=== PATIENT | female | born 1945 | race Caucasian/White ===

== ENCOUNTER 2018-02-24 13:25 | Emergency (ER) | payer OTHER ==
--- NOTE | 2018-02-24 14:34 | RAD REPORT ---
EXAM DESCRIPTION: RAD - Chest Single View - 02/24/2018 2:21 pm CLINICAL HISTORY: Congestion;Cough Chest pain. COMPARISON: Chest Pa And Lat (2 Views) dated 04/26/2016; Chest Pa And Lat (2 Views) dated 12/29/2015; CHEST PA AND LAT 2 VIEW dated 05/20/2012; Thorax Wo Con dated 06/25/2016 FINDINGS: Portable technique limits examination quality. Interstitial lung markings are diffusely prominent. Significant fullness in both hilar regions appear s unchanged most compatible with pulmonary arterial hypertension. Heart is mildly enlarged in size. N o displaced fractures. IMPRESSION: Pulmonary arterial hypertension. No acute bacterial pneumonia seen. Mild interstitial pulmonary edema versus interstitial pneumonia present.
[2018-02-24] MEDS ORDERED: LEVALBUTEROL 0.63 MG/3 ML NEB ONE (14:38)
--- NOTE | 2018-02-24 15:56 | EDPHYS ---
Physician Documentation [facility] Name: Judith Ernst Age: 72 yrs Sex: Female : 1945 Arrival Date: 02/24/2018 Time: 13:28 Bed 30 Private MD: Owen Trevizo E ED Physician Woo Burnett HPI: 02/24 15:01 This 72 yrs old Female presents to ER via Ambulatory with complaints of kdr Fever, Cough. 15:01 The patient reports fever, not measured (subjective). Onset: The symptoms/episode kdr began/occurred last night. Modifying factors: there are no obvious modifying factors. Associated signs and symptoms: Pertinent positives: chills, cough, that is dry. Severity of symptoms: At their worst the symptoms were mild moderate just prior to arrival, in the emergency department the symptoms are unchanged. The patient has not experienced similar symptoms in the past. The patient has not recently seen a physician. Historical: - Allergies: 13:38 No Known Allergies; hj - Home Meds: 13:38 alprazolam Oral [Active]; GERD meds [Active]; hj - PMHx: 13:38 GERD; Anxiety; hj - PSHx: 13:38 None; hj - Immunization history:: Adult Immunizations unknown. - Social history:: Smoking status: Patient/guardian denies using tobacco, Patient/guardian denies using alcohol. - Ebola Screening: : Patient negative for fever greater than or equal to 101.5 degrees Fahrenheit, and additional compatible Ebola Virus Disease symptoms Patient denies exposure to infectious person Patient denies travel to an Ebola-affected area in the 21 days before illness onset. ROS: 15:01 Constitutional: Negative for weight loss - did have subjective fever, chills and cough kdr Eyes: Negative for injury, pain, redness, and discharge, ENT: Negative for injury, pain, and discharge, Neck: Negative for injury, pain, and swelling, Cardiovascular: Negative for chest pain, palpitations, and edema, Abdomen/GI: Negative for abdominal pain, nausea, vomiting, diarrhea, and constipation, Back: Negative for injury and pain, : Negative for injury, bleeding, discharge, and swelling, MS/Extremity: Negative for injury and deformity, Skin: Negative for injury, rash, and discoloration, Neuro: Negative for headache, weakness, numbness, tingling, and seizure activity. Psych: Negative for depression, anxiety, suicide ideation, homicidal ideation, and hallucinations, Allergy/Immunology: Negative for hives, rash, and allergies, Endocrine: Negative for neck swelling, polydipsia, polyuria, polyphagia, and marked weight changes, Hematologic/Lymphatic: Negative for swollen nodes, abnormal bleeding, and unusual bruising. 15:01 Respiratory: Positive for cough, with clear sputum, dyspnea on exertion, shortness of breath, on exertion. wheezing, inspiratory. Exam: 15:01 Constitutional: This is a well developed, well nourished patient who is awake, alert, kdr and in no acute distress. Head/Face: Normocephalic, atraumatic. Eyes: Pupils equal round and reactive to light, extra-ocular motions intact. Lids and lashes normal. Conjunctiva and sclera are non-icteric and not injected. Cornea within normal limits. Periorbital areas with no swelling, redness, or edema. Neck: Trachea midline, no thyromegaly or masses palpated, and no cervical lymphadenopathy. Supple, full range of motion without nuchal rigidity, or vertebral point tenderness. No Meningismus. Chest/axilla: Normal chest wall appearance and motion. Nontender with no deformity. No lesions are appreciated. Cardiovascular: Regular rate and rhythm with a normal S1 and S2. No gallops, murmurs, or rubs. Normal PMI, no JVD. No pulse deficits. Abdomen/GI: Soft, non-tender, with normal bowel sounds. No distension or tympany. No guarding or rebound. No evidence of tenderness throughout. Back: No spinal tenderness. No costovertebral tenderness. Full range of motion. Skin: Warm, dry with normal turgor. Normal color with no rashes, no lesions, and no evidence of cellulitis. MS/ Extremity: Pulses equal, no cyanosis. Neurovascular intact. Full, normal range of motion. Neuro: Awake and alert, GCS 15, oriented to person, place, time, and situation. Cranial nerves II-XII grossly intact. Motor strength 5/5 in all extremities. Sensory grossly intact. Cerebellar exam normal. Normal gait. Psych: Awake, alert, with orientation to person, place and time. Behavior, mood, and affect are within normal limits. 15:01 Respiratory: the patient does not display signs of respiratory distress, Respirations: normal, Breath sounds: rales, crackles at bilateral bases with slight wheezing in right posterior base. Vital Signs: 13:39 BP 150 / 66; Pulse 92; Resp 18; Temp 99.5(O); Pulse Ox 96% on R/A; Weight 81.65 kg; hj Height 5 ft. 0 in. (152.40 cm); Pain 0/10; 15:37 BP 133 / 61; Pulse 95; Resp 18; Pulse Ox 97% ; tl3 16:32 BP 128 / 59; Pulse 90; Resp 18; Pulse Ox 95% on R/A; tl3 13:39 Body Mass Index 35.15 (81.65 kg, 152.40 cm) hj MDM: 15:56 Patient medically screened. kdr 16:21 Data reviewed: vital signs, nurses notes, lab test result(s), radiologic studies. kdr Counseling: I had a detailed discussion with the patient and/or guardian regarding: the historical points, exam findings, and any diagnostic results supporting the discharge/admit diagnosis, lab results, radiology results, the need for outpatient follow up. 02/24 14:05 Order name: Flu kdr 02/24 14:05 Order name: CXR XRAY; Complete Time: 15:00 kdr Administered Medications: 14:20 Drug: Xopenex (3) 1.25 mg Route: Inhalation; tl3 15:38 Follow up: Response: No adverse reaction; Marked relief of symptoms tl3 Disposition: 02/24/18 15:56 Discharged to Home. Impression: Acute interstitial pneumonitis. - Condition is Stable. - Discharge Instructions: Community-Acquired Pneumonia, Adult, [id number]. - Prescriptions for Zithromax Z- Barry 250 mg Oral Tablet - take 1 tablet by ORAL route as directed for 5 days Day 1 - take two (2) tablets one time. Day 2, 3, 4 , 5 take one (1) tablet once daily.; 6 tablet. Tessalon Perles 100 mg Oral Capsule - take 1 capsule by ORAL route every 8 hours As needed; 15 capsule. Albuterol Sulfate 90 mcg/actuation - inhale 1-2 puff by INHALATION route every 4-6 hours; 1 Inhaler. - Medication Reconciliation Form, Thank You Letter, Antibiotic Education form. - Follow up: Owen Trevizo MD; When: 2 - 3 days; Reason: If symptoms return, Further diagnostic work-up, Recheck today's complaints, Continuance of care, Re-evaluation by your physician. - Problem is new. - Symptoms are unchanged. Signatures: Dispatcher [employer] Woo Eason MD MD [facility] Gerson Woodson RN RN Nelia Fernandez RN RN tl3 Corrections: (The following items were deleted from the chart) 16:33 15:56 02/24/2018 15:56 Discharged to Home. Impression: Acute interstitial pneumonitis. tl3 Condition is Stable. Forms are Medication Reconciliation Form, Thank You Letter, Antibiotic Education, Prescription Opioid Use. Follow up: Owen Trevizo; When: 2 - 3 days; Reason: If symptoms return, Further diagnostic work-up, Recheck today's complaints, Continuance of care, Re-evaluation by your physician. Problem is new. Symptoms are unchanged. kdr
--- NOTE | 2018-02-24 15:56 | ER ---
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 Transition of care: patient was not received from another setting of care. Onset of symptoms was February 24, 2018. Risk Assessment: Do you want to hurt yourself or someone else? Patient reports no desire to harm self or others. Initial Sepsis Screen: Does the patient meet any 2 criteria? No. Patient's initial sepsis screen is negative. Does the patient have a suspected source of infection? No. Patient's initial sepsis screen is negative. Care prior to arrival: None. 13:35 Method Of Arrival: Ambulatory 13:35 Acuity: LAILA 4 hj Triage Assessment: 13:39 General: Appears in no apparent distress. uncomfortable, Behavior is calm, cooperative, hj appropriate for age. Pain: Denies pain. Historical: - Allergies: 13:38 No Known Allergies; hj - Home Meds: 13:38 alprazolam Oral [Active]; GERD meds [Active]; hj - PMHx: 13:38 GERD; Anxiety; hj - PSHx: 13:38 None; hj - Immunization history:: Adult Immunizations unknown. - Social history:: Smoking status: Patient/guardian denies using tobacco, Patient/guardian denies using alcohol. - Ebola Screening: : Patient negative for fever greater than or equal to 101.5 degrees Fahrenheit, and additional compatible Ebola Virus Disease symptoms Patient denies exposure to infectious person Patient denies travel to an Ebola-affected area in the 21 days before illness onset. Screenin:39 Abuse screen: Denies threats or abuse. Denies injuries from another. Nutritional hj screening: No deficits noted. Tuberculosis screening: No symptoms or risk factors identified. Fall Risk None identified. Assessment: 14:11 General: Appears in no apparent distress. well groomed, well developed, well nourished, tl3 Behavior is calm, cooperative, appropriate for age. Pain: Denies pain. Neuro: Level of Consciousness is awake, alert, obeys commands. Cardiovascular: Patient's skin is warm and dry. Respiratory: Airway is patent Respiratory effort is even, unlabored, Respiratory pattern is regular, symmetrical. Respiratory: Reports cough that is productive. GI: No deficits noted. No signs and/or symptoms were reported involving the gastrointestinal system. : No deficits noted. No signs and/or symptoms were reported regarding the genitourinary system. EENT: No deficits noted. No signs and/or symptoms were reported regarding the EENT system. Derm: No deficits noted. No signs and/or symptoms reported regarding the dermatologic system. 15:37 Reassessment: Patient and/or family updated on plan of care and expected duration. Pain tl3 level reassessed. Patient is alert, oriented x 3, equal unlabored respirations, skin warm/dry/pink. Patient states feeling better. 16:32 Reassessment: Patient appears in no apparent distress at this time. No changes from tl3 previously documented assessment. Patient and/or family updated on plan of care and expected duration. Pain level reassessed. Patient is alert, oriented x 3, equal unlabored respirations, skin warm/dry/pink. pt feels much better. Vital Signs: 13:39 BP 150 / 66; Pulse 92; Resp 18; Temp 99.5(O); Pulse Ox 96% on R/A; Weight 81.65 kg; hj Height 5 ft. 0 in. (152.40 cm); Pain 0/10; 15:37 BP 133 / 61; Pulse 95; Resp 18; Pulse Ox 97% ; tl3 16:32 BP 128 / 59; Pulse 90; Resp 18; Pulse Ox 95% on R/A; tl3 13:39 Body Mass Index 35.15 (81.65 kg, 152.40 cm) ED Course: 13:28 Patient arrived in ED. rg4 13:28 Owen Trevizo MD is Private Physician. rg4 13:37 Woo Burnett MD is Attending Physician. kdr 13:37 Triage completed. hj 13:39 Arm band placed on right wrist. hj 13:39 Patient has correct armband on for positive identification. Bed in low position. Call light in reach. Side rails up X 1. 13:52 Nelia Fernandez RN is Primary Nurse. tl3 14:11 No provider procedures requiring assistance completed. Flu and/or RSV swab sent to lab. tl3 X-ray(s) taken. 14:13 CXR XRAY Sent. tl3 14:19 X-ray completed. Portable x-ray completed in exam room. Patient tolerated procedure ag1 well. 14:23 CXR XRAY In Process Unspecified. EDMS 15:37 Patient did not have IV access during this emergency room visit. tl3 15:55 Owen Trevizo MD is Referral Physician. kdr 16:13 Flu and/or RSV swab sent to lab. jp3 16:13 Flu Sent. jp3 Administered Medications: 14:20 Drug: Xopenex (3) 1.25 mg Route: Inhalation; tl3 15:38 Follow up: Response: No adverse reaction; Marked relief of symptoms tl3 Outcome: 15:56 Discharge ordered by . kdr 16:32 Discharged to home ambulatory. tl3 16:32 Condition: stable 16:32 Discharge instructions given to patient, family, Instructed on discharge instructions, follow up and referral plans. medication usage, Demonstrated understanding of instructions, follow-up care, medications, Prescriptions given X 3. 16:33 Patient left the ED. tl3 Signatures: Dispatcher [employer] EDMS Woo Burnett MD MD kdr Cathy Tinoco ag1 Gerson Woodson, RN RN Sharon Ramirez 4 Nelia Fernandez, RN RN tl3 Greg Norman jp3 Corrections: (The following items were deleted from the chart) 13:42 13:39 Pulse 92bpm; Resp 18bpm; Pulse Ox 96% RA; Temp 99.5F Oral; 81.65 kg; Height 5 ft. hj 0 in.; BMI: 35.1; Pain 0/10; hj
== END 2018-02-24 16:33 | disposition home or self-care (01) ==
LOC: ER 13:25
DX: J84.114 Acute interstitial pneumonitis (principal); F41.9 Anxiety disorder, unspecified; K21.9 Gastro-esophageal reflux disease without esophagitis; Z79.899 Other long term (current) drug therapy
CPT/HCPCS: 71045; 87804; 99284

== ENCOUNTER 2018-03-05 11:05 | Emergency (ER) | payer OTHER ==
--- NOTE | 2018-03-05 14:40 | RAD REPORT ---
EXAM DESCRIPTION: CT - Head Brain Wo Cont - 03/05/2018 2:17 pm CLINICAL HISTORY: Headache COMPARISON: March 2017 TECHNIQUE: Computed axial tomography of the head was obtained. IV contrast was not requested. All CT scans are performed using dose optimization technique as appropriate and may include automated exposure control or mA/KV adjustment according to patient size. FINDINGS: An intracranial bleed is not seen . The ventricles are normal in caliber. No extra-axial fluid collection is noted. Fluid within the sinuses/ mastoids is not seen. IMPRESSION: No acute intracranial abnormality is seen. If patient's symptoms persist MRI of the bra in would be recommended.
--- NOTE | 2018-03-05 14:43 | RAD REPORT ---
EXAM DESCRIPTION: Stephan Single View03/05/2018 2:32 pm CLINICAL HISTORY: Cough COMPARISON: February 24, 2018 FINDINGS: Central pulmonary arteries remain enlarged likely indicating pulmonary tear a hypertensio n. The heart is mildly to moderately enlarged. Lungs probably are clear of acute infiltrate
[2018-03-05 15:16] LABS: Absolute Lymphocytes (CBC) 2.8 K/uL (0.7-4.9); Absolute Monocytes 0.7 K/uL (0.1-1.3); Absolute Neutrophil 3.9 K/uL (1.8-8.0); Basophils % 0.7 % (0-1.3); Eosinophils % 1.8 % (0-4.4); Lymphocytes % 37.3 % (15.3-44.8); MPV 6.8 fL (7.6-11.3); Monocytes % 9.6 % (3.3-12.3); RBC Red Blood Cell Count 4.24 M/uL (3.86-4.86)
[2018-03-05 15:34] LABS: BUN Blood Urea Nitrogen 25 mg/dL (7-18); Bicarbonate 30 mmol/L (21-32); Glucose Level 77 mg/dL (74-106); Sodium Level 141 mmol/L (136-145)
--- NOTE | 2018-03-05 16:20 | ER ---
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 Transition of care: patient was not received from another setting of care. Resp Distress? No respiratory distress is noted at this time. Onset of symptoms was March 05, 2018. Risk Assessment: Do you want to hurt yourself or someone else? Patient reports no desire to harm self or others. Initial Sepsis Screen: Does the patient meet any 2 criteria? No. Patient's initial sepsis screen is negative. Does the patient have a suspected source of infection? No. Patient's initial sepsis screen is negative. 11:38 Method Of Arrival: Ambulatory 11:38 Acuity: LAILA 4 11:40 Care prior to arrival: None. Triage Assessment: 11:40 General: Appears in no apparent distress. uncomfortable, Behavior is calm, cooperative, hj appropriate for age. Pain: Complains of pain in head. Respiratory: Historical: - Allergies: 11:40 No Known Allergies; hj - Home Meds: 11:40 Alprazolam Oral [Active]; GERD meds [Active]; hj - PMHx: 11:40 Anxiety; GERD; hj - PSHx: 11:40 None; hj - Immunization history:: Adult Immunizations up to date. - Social history:: Smoking status: Patient/guardian denies using tobacco, Patient/guardian denies using alcohol. - Ebola Screening: : Patient negative for fever greater than or equal to 101.5 degrees Fahrenheit, and additional compatible Ebola Virus Disease symptoms Patient denies exposure to infectious person Patient denies travel to an Ebola-affected area in the 21 days before illness onset. Screenin:40 Abuse screen: Denies threats or abuse. Denies injuries from another. Nutritional hj screening: No deficits noted. Tuberculosis screening: No symptoms or risk factors identified. Fall Risk None identified. Assessment: 11:40 Cardiovascular: Capillary refill < 3 seconds Patient's skin is warm and dry. hj 14:27 General: Appears in no apparent distress. Behavior is calm, cooperative. Neuro: Level la1 of Consciousness is awake, alert, obeys commands, Oriented to person, place, time, situation. Respiratory: Airway Respiratory effort is even, unlabored, Respiratory pattern is regular, symmetrical, Breath sounds are coarse bilaterally. GI: No signs and/or symptoms were reported involving the gastrointestinal system. : No signs and/or symptoms were reported regarding the genitourinary system. 16:28 Reassessment: Patient appears in no apparent distress at this time. No changes from la1 previously documented assessment. Patient and/or family updated on plan of care and expected duration. Pain level reassessed. Vital Signs: 11:40 BP 119 / 60; Pulse 85; Resp 18; Temp 98.2(O); Pulse Ox 99% on R/A; Weight 83.01 kg; hj Height 4 ft. 11 in. (149.86 cm); Pain 5/10; 16:29 BP 124 / 74; Pulse 81; Resp 16; Pulse Ox 98% on R/A; la1 11:40 Body Mass Index 36.96 (83.01 kg, 149.86 cm) ED Course: 11:17 Patient arrived in ED. mr 11:17 Owen Trevizo MD is Private Physician. mr 11:39 Triage completed. hj 11:40 Arm band placed on left wrist. hj 11:40 Patient has correct armband on for positive identification. Bed in low position. Call light in reach. Side rails up X 1. Adult w/ patient. 12:56 Joshua Guido RN is Primary Nurse. la1 12:57 Woo Burnett MD is Attending Physician. kdr 14:[address] via wheelchair. vm2 14:17 CT Head Brain wo Cont In Process Unspecified. EDMS 14:27 X-ray completed. Portable x-ray completed in exam room. Patient tolerated procedure sw well. 14:32 CXR XRAY In Process Unspecified. EDMS 15:44 Flu and/or RSV swab sent to lab. mh5 16:16 Owen Trevizo MD is Referral Physician. kdr 16:29 No provider procedures requiring assistance completed. Patient did not have IV access la1 during this emergency room visit. Administered Medications: No medications were administered Outcome: 16:20 Discharge ordered by . kdr 16:29 Discharged to home ambulatory. la1 16:29 Condition: stable 16:29 Discharge instructions given to patient, Instructed on discharge instructions, follow up and referral plans. no driving heavy equipment, Demonstrated understanding of instructions, follow-up care, medications, Prescriptions given X 2. 16:29 Patient left the ED. la1 Signatures: Dispatcher [employer] EDMS Woo Burnett MD MD kdr RiverJudith drew mr Hay, Joshua, RN RN la1 Xiomara Ludwig Henry, RN RN hj Martinez, Maria [facility] Phyllis Torres [facility] Corrections: (The following items were deleted from the chart) 11:43 11:40 Pulse 85bpm; Resp 18bpm; Pulse Ox 99% RA; Temp 98.2F Oral; 83.01 kg; Height 4 ft. hj 11 in.; BMI: 36.9; Pain 5/10; hj
--- NOTE | 2018-03-05 16:20 | EDPHYS ---
Physician Documentation [facility] Name: Judith Ernst Age: 72 yrs Sex: Female : 1945 Arrival Date: 03/05/2018 Time: 11:17 Bed 15 Private MD: Owen Trevizo E ED Physician Woo Burnett HPI: 03/05 18:24 This 72 yrs old Female presents to ER via Ambulatory with complaints of kdr Cough, Congestion. 18:24 The patient or guardian reports cough, that is constant, that is intermittent, kdr described as mild, with productive sputum, that is white, difficulty breathing. Onset: The symptoms/episode began/occurred Several weeks - has been seen here recently for the same problem. Severity of symptoms: At their worst the symptoms were mild, in the emergency department the symptoms are unchanged. Modifying factors: The symptoms are alleviated by nothing, the symptoms are aggravated by supine. Associated signs and symptoms: Pertinent positives: chest pain, with cough, Pertinent negatives: diarrhea, ear ache, fever, nausea, rhinorrhea, sore throat, vomiting. The patient has experienced similar episodes in the past, several times. The patient has been recently seen at the [facility] Emergency Department, last week. Historical: - Allergies: 11:40 No Known Allergies; hj - Home Meds: 11:40 Alprazolam Oral [Active]; GERD meds [Active]; hj - PMHx: 11:40 Anxiety; GERD; hj - PSHx: 11:40 None; hj - Immunization history:: Adult Immunizations up to date. - Social history:: Smoking status: Patient/guardian denies using tobacco, Patient/guardian denies using alcohol. - Ebola Screening: : Patient negative for fever greater than or equal to 101.5 degrees Fahrenheit, and additional compatible Ebola Virus Disease symptoms Patient denies exposure to infectious person Patient denies travel to an Ebola-affected area in the 21 days before illness onset. ROS: 18:24 Constitutional: Negative for fever, chills, and weight loss, Eyes: Negative for injury, kdr pain, redness, and discharge, ENT: Negative for injury, pain, and discharge, Neck: Negative for injury, pain, and swelling, Cardiovascular: Negative for chest pain, palpitations, and edema, Abdomen/GI: Negative for abdominal pain, nausea, vomiting, diarrhea, and constipation, Back: Negative for injury and pain, : Negative for injury, bleeding, discharge, and swelling, MS/Extremity: Negative for injury and deformity, Skin: Negative for injury, rash, and discoloration, Neuro: Negative for headache, weakness, numbness, tingling, and seizure activity. Psych: Negative for depression, anxiety, suicide ideation, homicidal ideation, and hallucinations, Allergy/Immunology: Negative for hives, rash, and allergies, Endocrine: Negative for neck swelling, polydipsia, polyuria, polyphagia, and marked weight changes, Hematologic/Lymphatic: Negative for swollen nodes, abnormal bleeding, and unusual bruising. 18:24 Respiratory: Positive for cough, dyspnea on exertion, shortness of breath, on exertion. Negative for hemoptysis, orthopnea, pleurisy, wheezing. Exam: 18:24 Constitutional: This is a well developed, well nourished patient who is awake, alert, kdr and in no acute distress. Head/Face: Normocephalic, atraumatic. Eyes: Pupils equal round and reactive to light, extra-ocular motions intact. Lids and lashes normal. Conjunctiva and sclera are non-icteric and not injected. Cornea within normal limits. Periorbital areas with no swelling, redness, or edema. Neck: Trachea midline, no thyromegaly or masses palpated, and no cervical lymphadenopathy. Supple, full range of motion without nuchal rigidity, or vertebral point tenderness. No Meningismus. Chest/axilla: Normal chest wall appearance and motion. Nontender with no deformity. No lesions are appreciated. Cardiovascular: Regular rate and rhythm with a normal S1 and S2. No gallops, murmurs, or rubs. Normal PMI, no JVD. No pulse deficits. Respiratory: Lungs have equal breath sounds bilaterally, clear to auscultation and percussion. No rales, rhonchi or wheezes noted. No increased work of breathing, no retractions or nasal flaring. Abdomen/GI: Soft, non-tender, with normal bowel sounds. No distension or tympany. No guarding or rebound. No evidence of tenderness throughout. Back: No spinal tenderness. No costovertebral tenderness. Full range of motion. Skin: Warm, dry with normal turgor. Normal color with no rashes, no lesions, and no evidence of cellulitis. MS/ Extremity: Pulses equal, no cyanosis. Neurovascular intact. Full, normal range of motion. Neuro: Awake and alert, GCS 15, oriented to person, place, time, and situation. Cranial nerves II-XII grossly intact. Motor strength 5/5 in all extremities. Sensory grossly intact. Cerebellar exam normal. Normal gait. Psych: Awake, alert, with orientation to person, place and time. Behavior, mood, and affect are within normal limits. Vital Signs: 11:40 BP 119 / 60; Pulse 85; Resp 18; Temp 98.2(O); Pulse Ox 99% on R/A; Weight 83.01 kg; hj Height 4 ft. 11 in. (149.86 cm); Pain 5/10; 16:29 BP 124 / 74; Pulse 81; Resp 16; Pulse Ox 98% on R/A; la1 11:40 Body Mass Index 36.96 (83.01 kg, 149.86 cm) hj MDM: 16:20 Patient medically screened. kdr 18:24 Data reviewed: vital signs, nurses notes, lab test result(s), radiologic studies. kdr Counseling: I had a detailed discussion with the patient and/or guardian regarding: the historical points, exam findings, and any diagnostic results supporting the discharge/admit diagnosis, lab results, radiology results, the need for outpatient follow up. 03/05 14:01 Order name: CBC with Diff; Complete Time: 15:37 kdr 03/05 14:01 Order name: Chem 7; Complete Time: 15:37 kdr 03/05 14:01 Order name: CXR XRAY; Complete Time: 15:37 kdr 03/05 14:03 Order name: CT Head Brain wo Cont; Complete Time: 15:37 kdr 03/05 14:06 Order name: Flu; Complete Time: 15:37 kdr Administered Medications: No medications were administered Disposition: 03/05/18 16:20 Discharged to Home. Impression: Disease of upper respiratory tract, unspecified, Cough. - Condition is Stable. - Discharge Instructions: Upper Respiratory Infection, Adult, [id number], Cough, Adult, [id number]. - Prescriptions for Mucinex DM 30- 600 mg Oral tablet extended release 12 hr - take 1 tablet by ORAL route every 12 hours as needed; 20 tablet. Promethazine VC- Codeine 6.25-5-10 mg/5 mL Oral syrup - take 5 milliliter by ORAL route every 4 hours As needed as needed, not to exceed 30 mL in 24 hours; 200 milliliter. - Medication Reconciliation Form, Thank You Letter form. - Follow up: Owen Trevizo MD; When: 2 - 3 days; Reason: If symptoms return, Further diagnostic work-up, Recheck today's complaints, Continuance of care, Re-evaluation by your physician. - Problem is an ongoing problem. - Symptoms have improved. Addendum: 03/10/2018 09:35 Addendum: I received a call from Yolanda Larson at [facility] regarding the patient's k dr call to administration looking for further help. She had not been able to see Dr. Trevizo as yet. I called Dr. Trevizo office and spoke with the WOODY Anand and informed him of the patient's two visits and the findings on CXR and labs. Specifically, the pulmonary HTN and edema. I indicated that cardiology and pulmonology follow-up may be warranted given the patient's persistent symptoms. He indicated that he was very familiar with the patient and that she did have an appointment on the of this month. He indicated that they would reach out to her to move her evaluation along as appropriate. I relayed this information back to Yolanda who indicated she would communicate this back to the patient. Signatures: Dispatcher [employer] EDMS Woo Burnett MD MD [facility] Joshua Guido RN RN la1 Gerson Woodson RN RN Corrections: (The following items were deleted from the chart) 03/05 16:29 16:20 03/05/2018 16:20 Discharged to Home. Impression: Disease of upper respiratory la1 tract, unspecified; Cough. Condition is Stable. Forms are Medication Reconciliation Form, Thank You Letter, Antibiotic Education, Prescription Opioid Use. Follow up: Owen Trevizo; When: 2 - 3 days; Reason: If symptoms return, Further diagnostic work-up, Recheck today's complaints, Continuance of care, Re-evaluation by your physician. Problem is an ongoing problem. Symptoms have improved. kdr
== END 2018-03-05 16:29 | disposition home or self-care (01) ==
LOC: ER 11:05
DX: J39.9 Disease of upper respiratory tract, unspecified (principal); F41.9 Anxiety disorder, unspecified; K21.9 Gastro-esophageal reflux disease without esophagitis
CPT/HCPCS: 36415; 70450; 71045; 80048; 85025; 87804; 99284